=== PATIENT | female | born 1935 | race Caucasian/White ===

== ENCOUNTER 2022-01-23 18:16 | Emergency (ER) | payer OTHER, MEDICARE ==
[2022-01-23 18:48] VITALS: BP 139/79; PULSE 77; RESP 18; TEMP 98; BMI 25.7
[2022-01-23] MEDS ORDERED: KETOROLAC TROMETHAMINE 60 MG/2 ML VIAL IM ONE (19:17)
[2022-01-23] MEDS ORDERED: KETOROLAC TROMETHAMINE 30 MG/1 ML VIAL ONE ×2 (19:23→19:25)
== END 2022-01-23 19:35 | disposition home or self-care (01) ==
LOC: FER 18:16
PROC: 3E0233Z Introduction of Anti-inflammatory into Muscle, Percutaneous Approach (ICD-10-PCS; principal; 2022-01-23)
DX: M54.50 Low back pain, unspecified (principal)
CPT/HCPCS: 99284-25

== ENCOUNTER 2022-12-26 12:00 | Emergency (ER) | payer OTHER, MEDICARE ==
[2022-12-26 12:20] VITALS: BP 110/81; PULSE 81; RESP 16; TEMP 98.4; BMI 22.6
[2022-12-26] MEDS ORDERED: KETOROLAC TROMETHAMINE 30 MG/1 ML VIAL IM ONE (12:35)
[2022-12-26] MEDS ORDERED: LIDOCAINE 5% TOPICAL PATCH TP ONE (12:35)
[2022-12-26] MEDS ORDERED: KETOROLAC TROMETHAMINE 30 MG/1 ML VIAL ONE (12:43)
[2022-12-26] MEDS ORDERED: LIDOCAINE 5% TOPICAL PATCH ONE (12:44)
[2022-12-26] MEDS ORDERED: LIDOCAINE PATCH REMOVAL MC ONE (22:00)
== END 2022-12-26 13:55 | disposition home or self-care (01) ==
LOC: FER 12:00
PROC: 3E0233Z Introduction of Anti-inflammatory into Muscle, Percutaneous Approach (ICD-10-PCS; principal; 2022-12-26)
DX: M54.50 Low back pain, unspecified (principal)
CPT/HCPCS: 99284-25